=== PATIENT | female | born 1970 | race Caucasian/White ===

== ENCOUNTER 2018-09-29 19:35 | Emergency (ER) | payer MEDICAID ==
[~2018-09-29] VITALS: Ht 162.6 cm; Wt 63.5 kg
[2018-09-29 19:39] VITALS: BP_SYST 121
--- NOTE | 2018-09-29 19:44 | NUR ---
Patient to ER bed 5 for evaluation. Side rails up. Report given to Manju.
--- NOTE | 2018-09-29 19:52 | NUR ---
KIP Gilbert at bedside examining patient.
--- NOTE | 2018-09-29 20:00 | NUR ---
PT came to the ED for a rash to the neck, bilateral upper and lower extremities, chest and back for 3 weels. Reports she was recently seen at [facility] for similar symptoms for 1-2 weeks. Reports she was d/c [facility] diagnosis of cellulitis and prescription of Keflex. Denies n/v/d or fever. No other complaints/injuries noted. Will cont. to monitor.
[2018-09-29] MEDS ORDERED: DIPHENHYDRAMINE HCL 50 MG CAPSULE PO ONE (20:15)
[2018-09-29] MEDS ORDERED: PREDNISONE 20 MG TABLET PO ONE (20:15)
[2018-09-29 20:40] VITALS: BP_SYST 121
--- NOTE | 2018-09-29 20:40 | NUR ---
Patient given written and verbal discharge instructions and verbalizes understanding. ER MD Dr. Chen discussed with patient the results and treatment provided. Patient in stable condition. ID arm band removed. IV catheter removed intact and dressing applied, no active bleeding. Rx of clobetasol, benadryl,and predisone given. Patient educated on pain management and to follow up with PMD. Pain Scale 0/10. Opportunity for questions provided and answered. Medication side effect fact sheet provided.
== END 2018-09-29 20:40 | disposition home or self-care (01) ==
LOC: SED 19:35
DX: L40.9 Psoriasis, unspecified (principal); L30.9 Dermatitis, unspecified; Z86.79 Personal history of other diseases of the circulatory system; Z95.0 Presence of cardiac pacemaker
CPT/HCPCS: 81025; 99283; J7512; Q0163

== ENCOUNTER 2018-09-29 23:06 | Inpatient (IN) | payer MEDICAID ==
[~2018-09-29] VITALS: Ht 162.6 cm; Wt 67.6 kg
[2018-09-29 23:11] VITALS: BP_SYST 132
[2018-09-29 23:35] LABS: BILIRUBIN,URINE NEGATIVE (NEGATIVE); BLOOD, URINE NEGATIVE (NEGATIVE); CLARITY/URINE CLEAR (CLEAR); COLOR,URINE YELLOW (YELLOW); GLUCOSE,URINE NEGATIVE (NEGATIVE); KETONES,URINE TRACE (NEGATIVE); LEUKOCYTE ESTERASE ,URINE NEGATIVE (NEGATIVE); NITRITE, URINE NEGATIVE (NEGATIVE); PH,URINE 5.5 (5.0-8.0); PROTEIN URINE NEGATIVE (NEGATIVE); UROBILINOGEN,URINE 0.2 (0.2-1.0)
[2018-09-29 23:37] LABS: BASOPHILS % (AUTO) 0.1 % (0.0-2.0); EOSINOPHILS # (AUTO) 0.3 K/uL (0.0-0.4); EOSINOPHILS % (AUTO) 2.2 % (0.0-4.0); HEMATOCRIT 39.7 % (36-48); LYMPHOCYTES # (AUTO) 0.6 K/uL (1.0-5.5); LYMPHOCYTES % (AUTO) 4.7 % (20.5-51.5); MEAN CORPUSCULAR HEMOGLOBIN 29 pg (27-31); MEAN CORPUSCULAR HGB CONC 33 % (32-36); MEAN CORPUSCULAR VOLUME 90 fL (79.0-98.0); MONOCYTES # (AUTO) 0.2 K/uL (0.0-1.0); MONOCYTES % (AUTO) 1.4 % (1.7-9.3); NEUTROPHILS # (AUTO) 12.1 K/uL (1.8-7.7); NEUTROPHILS % (AUTO) 91.6 % (40.0-70.0); PLATELET COUNT (AUTO) 332 K/uL (130-430); RED BLOOD CELL COUNT(AUTO) 4.42 MIL/uL (4.2-6.2); RED CELL DISTRIBUTION WIDTH 14.7 % (9.0-15.0); WHITE BLOOD COUNT (AUTO) 13.3 K/uL (4.8-10.8)
[2018-09-29 23:47] LABS: CALCIUM 8.4 mg/dL (8.4-11.0); CREATININE 1.02 mg/dL (0.55-1.30); POTASSIUM 3.6 mmol/L (3.5-5.1)
[2018-09-29 23:58] LABS: ALBUMIN 3.2 g/dL (3.4-4.8); TOTAL BILIRUBIN 0.1 mg/dL (0.0-1.0)
[2018-09-30] MEDS ORDERED: VANCOMYCIN HCL 1,000 MG in NS 250 ML IV ONE (00:30)
[2018-09-30] MEDS ORDERED: NACL 0.9% 2,000 ML IV ONE (00:30)
[2018-09-30] MEDS ORDERED: PIPERACILLIN/TAZO 3.375 GM in NS 50 ML IV ONE (00:30)
[2018-09-30] MEDS ORDERED: PIPERACILLIN/TAZOBACTAM 3.375 GM/VIAL (ZOSYN) IV ONE (00:55)
[2018-09-30] MEDS ORDERED: VANCOMYCIN HCL 1000 MG/VIAL IV ONE (00:55)
[2018-09-30 02:48] VITALS: BP_SYST 122
[2018-09-30 08:00] VITALS: BP_SYST 116
[2018-09-30 12:58] VITALS: BP_SYST 119
[2018-09-30] MEDS: VANCOMYCIN HCL 1,250 MG in NS 250 ML IV SCH (15:04)
[2018-09-30 16:52] VITALS: BP_SYST 121
[2018-09-30] MEDS: DIPHENHYDRAMINE INJ 50 MG/ML VIAL IVP PRN ×2 (17:42→20:59)
[2018-09-30] MEDS ORDERED: DIPHENHYDRAMINE INJ 50 MG/ML VIAL IVP SCH (20:15)
[2018-09-30 21:31] VITALS: BP_SYST 123
[2018-10-01 01:08] VITALS: BP_SYST 125
[2018-10-01] MEDS ORDERED: PERMETHRIN 5% 60 GM CREAM.GM. TP SCH (01:30)
[2018-10-01 08:00] VITALS: BP_SYST 106
[2018-10-01] MEDS: DIPHENHYDRAMINE INJ 50 MG/ML VIAL IVP PRN (11:34)
[2018-10-01 12:00] VITALS: BP_SYST 101
[2018-10-01] MEDS ORDERED: methylPREDNISolone SOD SUCC/PF 62.5 MG/ML VIAL IVP ONE (13:45)
[2018-10-01] MEDS ORDERED: DIPHENHYDRAMINE INJ 50 MG/ML VIAL IVP ONE (13:45)
[2018-10-01] MEDS: VANCOMYCIN HCL 1,250 MG in NS 250 ML IV SCH (13:57)
[2018-10-01 15:54] VITALS: BP_SYST 111
[2018-10-01 21:38] VITALS: BP_SYST 120
[2018-10-01] MEDS: FAMOTIDINE 20 MG TABLET PO SCH (21:39)
[2018-10-01] MEDS: CLOTRIMAZOLE/BETAMETHASONE 45 GM TOPICAL CREAM TP SCH (21:40)
[2018-10-01] MEDS: traMADol HCL HCL 50 MG TABLET (ULTRAM) PO PRN (22:10)
[2018-10-02] VITALS: BP_SYST 113
[2018-10-02 06:39] LABS: BASOPHILS % (AUTO) 0.2 % (0.0-2.0); EOSINOPHILS # (AUTO) 0.1 K/uL (0.0-0.4); EOSINOPHILS % (AUTO) 0.5 % (0.0-4.0); HEMATOCRIT 40.5 % (36-48); HEMOGLOBIN 13.2 g/dL (12.0-16.0); LYMPHOCYTES # (AUTO) 1.1 K/uL (1.0-5.5); LYMPHOCYTES % (AUTO) 7.1 % (20.5-51.5); MEAN CORPUSCULAR HEMOGLOBIN 29 pg (27-31); MEAN CORPUSCULAR HGB CONC 33 % (32-36); MEAN CORPUSCULAR VOLUME 90 fL (79.0-98.0); MONOCYTES # (AUTO) 0.6 K/uL (0.0-1.0); MONOCYTES % (AUTO) 3.8 % (1.7-9.3); NEUTROPHILS # (AUTO) 13.7 K/uL (1.8-7.7); NEUTROPHILS % (AUTO) 88.4 % (40.0-70.0); PLATELET COUNT (AUTO) 344 K/uL (130-430); RED BLOOD CELL COUNT(AUTO) 4.53 MIL/uL (4.2-6.2); RED CELL DISTRIBUTION WIDTH 14.8 % (9.0-15.0); WHITE BLOOD COUNT (AUTO) 15.5 K/uL (4.8-10.8)
[2018-10-02 06:50] LABS: ALBUMIN 2.8 g/dL (3.4-4.8); CALCIUM 8.3 mg/dL (8.4-11.0); CREATININE 0.83 mg/dL (0.55-1.30); POTASSIUM 4.3 mmol/L (3.5-5.1); TOTAL BILIRUBIN 0.1 mg/dL (0.0-1.0)
[2018-10-02 08:00] VITALS: BP_SYST 117
[2018-10-02] MEDS: CLOTRIMAZOLE/BETAMETHASONE 45 GM TOPICAL CREAM TP SCH ×2 (09:00→21:05)
[2018-10-02] MEDS: FAMOTIDINE 20 MG TABLET PO SCH ×2 (09:03→21:05)
[2018-10-02] MEDS: DIPHENHYDRAMINE INJ 50 MG/ML VIAL IVP PRN ×2 (09:03→17:39)
[2018-10-02] MEDS ORDERED: methylPREDNISolone SOD SUCC/PF 62.5 MG/ML VIAL IVP ONE (12:00)
[2018-10-02] MEDS ORDERED: DIPHENHYDRAMINE INJ 50 MG/ML VIAL IM ONE (12:00)
[2018-10-02 12:48] VITALS: BP_SYST 114
[2018-10-02] MEDS ORDERED: VANCOMYCIN HCL 1,250 MG in NS 250 ML IV SCH (14:04)
[2018-10-02 15:51] VITALS: BP_SYST 117
[2018-10-02 19:00] VITALS: BP_SYST 111
[2018-10-02 20:00] VITALS: BP_SYST 111
[2018-10-02] MEDS: CLOBETASOL PROPIONATE 0.05%, 60 GM CREAM TP SCH (21:06)
[2018-10-02] MEDS ORDERED: ALPRAZolam 0.25 MG TABLET PO PRN (22:00)
[2018-10-02] MEDS ORDERED: TEMAZEPAM 15 MG CAPSULE PO PRN (22:00)
[2018-10-03] VITALS: BP_SYST 126
[2018-10-03] MEDS ORDERED: DIPHENHYDRAMINE HCL 25 MG CAPSULE PO PRN (02:15)
[2018-10-03 07:19] LABS: BASOPHILS % (AUTO) 0.1 % (0.0-2.0); EOSINOPHILS # (AUTO) 0.1 K/uL (0.0-0.4); EOSINOPHILS % (AUTO) 0.3 % (0.0-4.0); HEMATOCRIT 38.5 % (36-48); HEMOGLOBIN 12.7 g/dL (12.0-16.0); LYMPHOCYTES # (AUTO) 1.4 K/uL (1.0-5.5); LYMPHOCYTES % (AUTO) 8.4 % (20.5-51.5); MEAN CORPUSCULAR HEMOGLOBIN 29 pg (27-31); MEAN CORPUSCULAR HGB CONC 33 % (32-36); MEAN CORPUSCULAR VOLUME 89 fL (79.0-98.0); MONOCYTES % (AUTO) 5.9 % (1.7-9.3); NEUTROPHILS # (AUTO) 14.3 K/uL (1.8-7.7); NEUTROPHILS % (AUTO) 85.3 % (40.0-70.0); PLATELET COUNT (AUTO) 355 K/uL (130-430); RED BLOOD CELL COUNT(AUTO) 4.33 MIL/uL (4.2-6.2); RED CELL DISTRIBUTION WIDTH 14.8 % (9.0-15.0); WHITE BLOOD COUNT (AUTO) 16.7 K/uL (4.8-10.8)
[2018-10-03 07:37] LABS: ALBUMIN 2.8 g/dL (3.4-4.8); CALCIUM 8.5 mg/dL (8.4-11.0); CREATININE 0.91 mg/dL (0.55-1.30); POTASSIUM 4.2 mmol/L (3.5-5.1); TOTAL BILIRUBIN 0.1 mg/dL (0.0-1.0)
[2018-10-03 07:40] VITALS: BP_SYST 131
[2018-10-03] MEDS ORDERED: LORATADINE 10 MG TABLET PO SCH (09:00)
[2018-10-03] MEDS: traMADol HCL HCL 50 MG TABLET (ULTRAM) PO PRN (10:05)
[2018-10-03] MEDS: FAMOTIDINE 20 MG TABLET PO SCH (10:05)
[2018-10-03] MEDS: CLOBETASOL PROPIONATE 0.05%, 60 GM CREAM TP SCH (10:06)
[2018-10-03] MEDS: CLOTRIMAZOLE/BETAMETHASONE 45 GM TOPICAL CREAM TP SCH (10:29)
[2018-10-03 11:26] VITALS: BP_SYST 135
== END 2018-10-03 12:30 | disposition home or self-care (01) | DRG 383 ==
LOC: SED 23:06 → SMU 09-30 02:19
PROVIDERS: ADMIT Internal Medicine Hospice and Palliative Medicine; ATTEND Internal Medicine Hospice and Palliative Medicine
DX: L03.119 Cellulitis of unspecified part of limb (principal); B86 Scabies; I25.10 Atherosclerotic heart disease of native coronary artery without angina pectoris; L30.9 Dermatitis, unspecified; L40.9 Psoriasis, unspecified; Z95.0 Presence of cardiac pacemaker; Z79.899 Other long term (current) drug therapy
CPT/HCPCS: 36415; 80053; 80202-TC; 81003; 83605; 85025; 85651-TC; 87040-TC; 96365; 96366; 96367; 99285; J1200; J2543; J2930; J3370; J3410; J7050; Q0163